=== PATIENT | female | born 1975 | race Caucasian/White ===

== ENCOUNTER 2017-02-13 18:44 | Emergency (ER) | payer OTHER, MEDICARE ==
[2017-02-13] MEDS ORDERED: IOPAMIDOL 370 (76%) IV.SOLN 150 ML IV ONE (18:45)
[2017-02-13] MEDS ORDERED: ASPIRIN CHEWTAB 81 MG TABLET ONE ×2 (19:31→19:32)
[2017-02-13 20:00] LABS: ABSOLUTE NEUTROPHIL COUNT 2.5 K/mm3 (1.8-7.7); BASO % 0.6 % (0.2-1.0); EOS # 0.1 (0.0-0.5); EOS % 1.4 % (0.9-2.9); HEMATOCRIT 37.6 % (37.0-47.0); HEMOGLOBIN 12.7 gm/l (12.0-16.0); IMM NEUT% 0.2 % (0-1); LYMPH # 3.1 (1.0-4.8); LYMPH % 49.6 % (15-45); MEAN CELL VOLUME 98.2 fl (81.0-99.0); MEAN CORPUSCULAR HEMOGLOBIN 33.2 pg (27.0-31.0); MEAN CORPUSCULAR HGB CONC 33.8 g/dl (33.0-37.0); MEAN PLATELET VOLUME 9.6 fl (7.4-10.4); MONO # 0.5 (0.0-0.8); MONO % 8.4 % (4-12); NEUT % 39.8 % (43-75); PLATELET COUNT 158 K/mm3 (130-400); RED CELL DISTRIBUTION WIDTH 12.6 % (11.5-14.5)
[2017-02-13 20:04] LABS: ALB/GLOB RATIO 1.7 (>1.0); ALBUMIN 4.7 gm/dL (3.5-5.7)
[2017-02-13 20:10] LABS: TROPONIN I < 0.01 ng/ml (0.0-0.06)
[2017-02-13 20:15] LABS: CKMB ISOENZYME 5.6 ng/ml (0.6-6.3)
--- NOTE | 2017-02-13 20:44 | CT ---
CHEST CTA HISTORY: Chest pain, elevated d-dimer. TECHNIQUE: Following the administration of 100 cc Isovue-300 intravenous contrast, contiguous axial images were acquired from the thoracic inlet to the diaphragmatic hiatus for CT pulmonary angiography. Three-dimensional imaging was not performed. FINDINGS: PULMONARY ARTERIAL TREE: Technically adequate enhancement: No dominant filling defects. THORACIC AORTA: Normal caliber. No evidence of dissection. LUNGS: No gross airspace abnormality. No pleural effusion. Minimal atelectatic change. OLIVE AND MEDIASTINUM: No abnormally enlarged lymph nodes. AXILLAE: No grossly enlarged lymph nodes. UPPER ABDOMEN:No gross mass effect. Evidence of prior cholecystectomy. OSSEOUS STRUCTURES: No grossly destructive lesions. IMPRESSION: No CTA evidence of proximal order pulmonary embolus. No gross airspace disease or acute thoracic aortic pathology. Evidence of prior cholecystectomy. Results were electronically transmitted to the electronic medical record at 02/13/2017 at 2040 hours.
== END 2017-02-13 21:20 | disposition home or self-care (01) ==
LOC: ED 18:44
DX: R51 Headache (principal); M79.601 Pain in right arm; M54.2 Cervicalgia; R07.9 Chest pain, unspecified; K76.0 Fatty (change of) liver, not elsewhere classified